=== PATIENT | female | born 1970 | race Caucasian/White ===

== ENCOUNTER 2021-10-14 09:57 | Outpatient (CLI) | payer BC, SELFPAY ==
[2021-10-14 12:47] LABS: SARS-CoV-2 Ag Positive (Negative)
== END 2021-10-14 09:58 | disposition home or self-care (01) ==
LOC: CHSLAB 10:04
PROVIDERS: PCP Family Medicine; Visit Provider Family Medicine
DX: U07.1 COVID-19 (principal); J02.9 Acute pharyngitis, unspecified
CPT/HCPCS: 87081; 87426; 87880; C9803